=== PATIENT | male | born 1955 | race Caucasian/White ===

== ENCOUNTER 2016-10-22 09:12 | Emergency (ER) | payer OTHER ==
[~2016-10-22] VITALS: Ht 185.4 cm; Wt 109.6 kg
[~2016-10-22 09:12] MED LIST: BACT800T5 PO; HYDR-3580 PO; METO50TA PO; NAPR500 PO; PROS5TAB2 PO; TERA5CAP3 PO; VASO10TA8 PO
[2016-10-22 09:21] VITALS: BP 134/87; PULSE 76; RESP 16; TEMP 98.7; O2SAT 97
--- NOTE | 2016-10-22 09:39 | PD ---
HPI Chief Complaint: GI Complaint Time Seen by Provider: 09:25 Travel History International Travel<30 days: No Contact w/Intl Traveler<30days: No Traveled to known affect area: No History of Present Illness HPI This is a 61-year-old male who presents to the emergency department with diarrhea that's been going on for 2-3 weeks, constant, loose and watery. He has spoken to his primary care physician regarding this and his primary care doctor started him on Bactrim and then a course of Flagyl along with Lomotil. He says over the past 4 days he's developed black stools which is concerned him. He also reports that he's been feeling lightheaded and dizzy. Yesterday he had some intermittent right upper quadrant abdominal pain which has since resolved. He's not had any vomiting. He is not on any NSAIDs and denies alcohol use. He did have a colonoscopy a year and a half ago which was normal. He has an appointment with a technology lab teacher this Monday, but he was concerned about the dark stools so he came to the emergency department to be evaluated. PFSH Past Medical History Arthritis: Yes (RT LEG AND BILATERAL SHOULDERS) Blood Disorders: No Anxiety: No Depression: No Heart Rhythm Problems: No Cancer: No Cardiac Catheterization: Yes (02/20) Cardiovascular Problems: Yes (htn on meds) High Cholesterol: Yes Chest Pain: No Congestive Heart Failure: No Coronary Artery Disease: Yes Diabetes: No Diminished Hearing: No Endocrine: No Gastrointestinal Disorders: Yes (HX OF A GI BLEED (DENIES) HX OF DIVERTICULITIS ) GERD: No Genitourinary: Yes (? PROSTATE) Hepatitis: Yes (HEP C) Hiatal Hernia: No Heparin Induced Thrombocytopen: No Hypertension: Yes Immune Disorder: No Implanted Vascular Access Dvce: Yes Musculoskeletal: Yes (RIGHT FOOT PAIN) Neurologic: Yes (LEFT LEG NUMBNESS, NEUROPATHY) Psychiatric: Yes (SOME ANXIETY AND DEPRESSION) Reproductive: No Respiratory: Yes Immunizations Current: Yes Myocardial Infarction: No Sickle Cell Disease: Yes Sleep Apnea: Yes Thyroid Disease: No Ulcer: No Tetanus Vaccination: Unknown Past Surgical History Abdominal Surgery: No AICD: No Appendectomy: No Arteriovenous Shunt: No Body Medical Devices: SCREWS IN RT ANKLE Cardiac Surgery: No Cholecystectomy: No Ear Surgery: No Endocrine Surgery: Yes Eye Surgery: No Genitourinary Surgery: No Gynecologic Surgery: No Insulin Pump: No Joint Replacement: No Neurologic Surgery: No Oral Surgery: Yes (tonsillectomy ) Pacemaker: No Thoracic Surgery: No Tonsillectomy: Yes Social History Alcohol Use: Yes (2-4 beers/weekly) Tobacco Use: Yes (1/2 ppd) Substance Use: No Allergies-Medications (Allergen,Severity, Reaction): Coded Allergies: No Known Allergies (Verified , 10/22/16) Reported Meds & Prescriptions Reported Meds & Active Scripts Active Reported Xanax (Alprazolam) 0.25 Mg Tab 0.25 Mg PO BID PRN Temazepam 30 Mg Cap 30 Mg PO HS PRN Terazosin (Terazosin HCl) 5 Mg Cap 5 Mg PO HS Metoprolol Tartrate 75 Mg Tab 75 Mg PO BID Hydrocodone-Acetaminophen 10-325 mg Tab 1 Tab PO Q8H PRN Finasteride 5 Mg Tab 5 Mg PO DAILY Do not crush. Vasotec (Enalapril Maleate) 20 Mg Tab 20 Mg PO BID Review of Systems Except as stated in HPI: all other systems reviewed are Neg Physical Exam Narrative GENERAL:Well appearing, no acute distress SKIN: Warm and dry. HEAD: Atraumatic. Normocephalic. EYES: Pupils equal and round. No injection or drainage. ENT: Moist mucous membranes NECK: Trachea midline. CARDIOVASCULAR: Regular rate and rhythm. No murmur appreciated. RESPIRATORY: Clear to auscultation. Breath sounds equal bilaterally. GASTROINTESTINAL: Abdomen soft, non-tender, nondistended. MUSCULOSKELETAL: No obvious deformities. NEUROLOGICAL: Awake and alert. No obvious cranial nerve deficits. Moving all extremities. PSYCHIATRIC: Appropriate mood and affect; insight and judgment normal. Data Data Last Documented VS Vital Signs Date Time Temp Pulse Resp B/P Pulse Ox O2 Delivery O2 Flow Rate FiO2 10/22/16 09:46 16 97 Room Air 10/22/16 09:21 98.7 76 134/87 Orders Complete Blood Count With Diff (10/22/16 09:36) Comprehensive Metabolic Panel (10/22/16 09:36) Ecg Monitoring (10/22/16 09:36) Iv Access Insert/Monitor (10/22/16 09:36) Oximetry (10/22/16 09:36) Sodium Chloride 0.9% Flush (Ns Flush) (10/22/16 09:45) Labs Laboratory Tests Test 10/22/16 09:30 White Blood Count 7.2 TH/MM3 Red Blood Count 5.55 MIL/MM3 Hemoglobin 16.3 GM/DL Hematocrit 48.8 % Mean Corpuscular Volume 87.8 FL Mean Corpuscular Hemoglobin 29.4 PG Mean Corpuscular Hemoglobin 33.4 % Concent Red Cell Distribution Width 12.4 % Platelet Count 154 TH/MM3 Mean Platelet Volume 9.7 FL Neutrophils (%) (Auto) 77.2 % Lymphocytes (%) (Auto) 14.3 % Monocytes (%) (Auto) 6.1 % Eosinophils (%) (Auto) 1.8 % Basophils (%) (Auto) 0.6 % Neutrophils # (Auto) 5.7 TH/MM3 Lymphocytes # (Auto) 1.0 TH/MM3 Monocytes # (Auto) 0.4 TH/MM3 Eosinophils # (Auto) 0.1 TH/MM3 Basophils # (Auto) 0.0 TH/MM3 CBC Comment DIFF FINAL Differential Comment Sodium Level 143 MEQ/L Potassium Level 3.9 MEQ/L Chloride Level 106 MEQ/L Carbon Dioxide Level 28.8 MEQ/L Anion Gap 8 MEQ/L Blood Urea Nitrogen 11 MG/DL Creatinine 0.81 MG/DL Estimat Glomerular Filtration 97 ML/MIN Rate Random Glucose 103 MG/DL Calcium Level 8.9 MG/DL Total Bilirubin 0.5 MG/DL Aspartate Amino Transf 22 U/L (AST/SGOT) Alanine Aminotransferase 45 U/L (ALT/SGPT) Alkaline Phosphatase 54 U/L Total Protein 7.7 GM/DL Albumin 3.8 GM/DL MDM Medical Decision Making Medical Screen Exam Complete: Yes Emergency Medical Condition: Yes Interpretation(s) No leukocytosis No anemia Electrolytes within normal limits Differential Diagnosis Upper GI bleed, lower GI bleed, diarrhea, electrolyte abnormality, anemia Narrative Course This is a 61-year-old male who presents to the emergency department concerned about dark stools in the setting of recent diarrhea. He was placed on a monitor and an IV was established. Vital signs are reassuring. Labs are obtained which demonstrated normal hemoglobin. Hemoccult was negative. I don' t suspect an acute life-threatening GI bleed at this time and I think he's safe to follow-up with his subspecialist on Monday. [facility] Point of Care Internal Pos. & Neg. Controls: Passed Fecal Specimen Occult Blood: Negative Diagnosis Primary Impression: Dark stools Patient Instructions: General Instructions Additional Instructions: If you develop severe or worsening abdominal pain, fever>100.4, persistent vomiting or inability to eat or drink return to the emergency department immediately. Follow up with your technology lab teacher as scheduled. Med/Other Pt SpecificInfo: No Change to Meds Disposition: 01 DISCHARGE HOME Condition: Stable Alanna Griffiths MD Oct 22, 2016 09:39
[2016-10-22] MEDS ORDERED: ENAL20TA81 PO (09:44)
[2016-10-22] MEDS ORDERED: TEMA30CA PO (09:44)
[2016-10-22] MEDS ORDERED: TERA5CAP3 PO (09:44)
[2016-10-22] MEDS ORDERED: METO-426 PO (09:44)
[2016-10-22] MEDS ORDERED: FINA5TAB2 PO (09:44)
[2016-10-22] MEDS ORDERED: HYDR-3583 PO (09:44)
[2016-10-22] MEDS ORDERED: ALPR.25 PO (09:45)
[2016-10-22] MEDS ORDERED: SODIUM CHLORIDE 0.9% FLUSH 5 ML FLUSH IVF PRN (09:45)
[2016-10-22 09:46] VITALS: RESP 16; O2SAT 97
[2016-10-22 09:46] LABS: AUTOMATED NEUTROPHIL # 5.7 TH/MM3 (1.8-7.7); BASOPHIL % 0.6 % (0.0-2.0); EOSINOPHIL # 0.1 TH/MM3 (0-0.4); EOSINOPHIL % 1.8 % (0.0-4.0); HEMATOCRIT 48.8 % (39.0-51.0); HEMO FLAGS DIFF FINAL; LYMPH % 14.3 % (9.0-44.0); MEAN CELL VOLUME 87.8 FL (80.0-100.0); MEAN CORPUSCULAR HEMOGLOBIN 29.4 PG (27.0-34.0); MEAN CORPUSCULAR HGB CONC 33.4 % (32.0-36.0); MONO % 6.1 % (0.0-8.0); NEUT % 77.2 % (16.0-70.0); PLATELET COUNT 154 TH/MM3 (150-450); RED BLOOD COUNT 5.55 MIL/MM3 (4.50-5.90); RED CELL DISTRIBUTION WIDTH 12.4 % (11.6-17.2); WHITE BLOOD COUNT 7.2 TH/MM3 (4.0-11.0)
[2016-10-22 09:59] LABS: ANION GAP 8 MEQ/L (5-15); BICARBONATE 28.8 MEQ/L (21.0-32.0); CHLORIDE 106 MEQ/L (98-107); POTASSIUM 3.9 MEQ/L (3.5-5.1); SODIUM (NA) 143 MEQ/L (136-145)
[2016-10-22 10:02] LABS: ALT (GPT) 45 U/L (12-78); AST (GOT) 22 U/L (15-37); GLOMERULAR FILTRATION RATE 97 ML/MIN (>89)
[2016-10-22 10:03] LABS: TOTAL BILIRUBIN ADULT 0.5 MG/DL (0.2-1.0)
[2016-10-22 10:05] LABS: ALKALINE PHOSPHATASE 54 U/L (45-117); BLOOD UREA NITROGEN 11 MG/DL (7-18)
[2016-10-22 10:23] VITALS: BP 135/83
== END 2016-10-22 10:28 | disposition home or self-care (01) ==
LOC: PHED 09:12
DX: R19.5 Other fecal abnormalities (principal); R19.7 Diarrhea, unspecified; R42 Dizziness and giddiness; I10 Essential (primary) hypertension; E78.00 Pure hypercholesterolemia, unspecified; G47.30 Sleep apnea, unspecified; Z86.79 Personal history of other diseases of the circulatory system; Z87.39 Personal history of other diseases of the musculoskeletal system and connective tissue; Z87.19 Personal history of other diseases of the digestive system; Z86.19 Personal history of other infectious and parasitic diseases; Z86.69 Personal history of other diseases of the nervous system and sense organs; Z86.59 Personal history of other mental and behavioral disorders; Z87.09 Personal history of other diseases of the respiratory system; Z86.2 Personal history of diseases of the blood and blood-forming organs and certain disorders involving the immune mechanism
CPT/HCPCS: 80053; 85025; 99284

== ENCOUNTER 2016-11-30 09:57 | Emergency (ER) | payer OTHER, MEDICAID ==
[~2016-11-30] VITALS: Ht 185.4 cm; Wt 109.0 kg
[2016-11-30] VITALS (9 sets, daily range): BP systolic 98–134; BP diastolic 65–75; PULSE 62–80; RESP 16–18; TEMP 98.7; O2SAT 97–98
[~2016-11-30 09:57] MED LIST changes: +ALPR.25 PO; -BACT800T5 PO; +ENAL20TA81 PO; +FINA5TAB2 PO; -HYDR-3580 PO; +HYDR-3583 PO; +METO-426 PO; -METO50TA PO; -NAPR500 PO; -PROS5TAB2 PO; +TEMA30CA PO; -VASO10TA8 PO
[2016-11-30] MEDS ORDERED: GABA300C5 PO (10:24)
[2016-11-30] MEDS ORDERED: SODIUM CHLOR 0.9% 1000 ML INJ 1,000 ML IV SCH (10:35)
[2016-11-30] MEDS ORDERED: SODIUM CHLORIDE 0.9% FLUSH 5 ML FLUSH IVF PRN (10:45)
[2016-11-30] MEDS ORDERED: ONDANSETRON HCL 4 MG/2 ML VIAL IVP ONE (10:45)
[2016-11-30 10:48] LABS: AUTOMATED NEUTROPHIL # 4.6 TH/MM3 (1.8-7.7); BASOPHIL % 0.5 % (0.0-2.0); EOSINOPHIL # 0.2 TH/MM3 (0-0.4); EOSINOPHIL % 2.8 % (0.0-4.0); HEMATOCRIT 46.4 % (39.0-51.0); HEMO FLAGS DIFF FINAL; LYMPH % 23.5 % (9.0-44.0); LYMPHOCYTE # 1.6 TH/MM3 (1.0-4.8); MEAN CELL VOLUME 88.4 FL (80.0-100.0); MEAN CORPUSCULAR HEMOGLOBIN 29.1 PG (27.0-34.0); MEAN CORPUSCULAR HGB CONC 32.9 % (32.0-36.0); MONO % 6.7 % (0.0-8.0); NEUT % 66.5 % (16.0-70.0); PLATELET COUNT 171 TH/MM3 (150-450); RED BLOOD COUNT 5.26 MIL/MM3 (4.50-5.90); RED CELL DISTRIBUTION WIDTH 12.3 % (11.6-17.2); WHITE BLOOD COUNT 6.9 TH/MM3 (4.0-11.0)
--- NOTE | 2016-11-30 10:52 | PD ---
HPI Chief Complaint: GI Complaint Time Seen by Provider: 10:23 Travel History International Travel<30 days: No Contact w/Intl Traveler<30days: No Traveled to known affect area: No History of Present Illness HPI Patient is 61-year-old male who presents to emergency room with complaints of abdominal pain and diarrhea. Patient reports that he has had diarrhea since September 24, 2016. Patient reports that he has multiple absence of diarrhea per day. Patient reports that on September 26, he talked to his doctor, Dr. Babcock about this and was started on 2 antibiotics and was put on Imodium, reports that this did not help with his symptoms although he completed a full course of antibiotics. Reports that he ended up following up with his GI doctor and saw Dr. Paz sometime in late October and was given "a bunch of samples" and was sent home. Reports that he had an ultrasound of his liver and the ultrasound showed an enlarged liver - reports that he did have history of hepatitis but "thats gone bc it has been treated." Patient reports that he was so symptomatic and was having multiple episodes of diarrhea per day, reports that he had a colonoscopy as well as an endoscopy by Dr Smallwood on November 23, 2016 which he was told was "normal." Patient reports that he is continuing to have multiple episodes of diarrhea each day. Patient reports that he is able to eat and drink, reports that overall he feels dehydrated as she is afraid to drink as if he has too much fluids, he will have diarrhea. Reports that his GI doctor did request stool samples, patient did send one sample out via [employer] a couple days ago - the samples are still pending. Patient reports that he has a bowel movement this morning and "made a mess of myself," reports that he went to shower but felt light headed and dizzy in the shower. Reports that he felt as if he was going to pass out but didn't. Reports that he was able to make it to his bed and lie down. Patient concerned about this diarrhea which has been ongoing since September 24, 2016. Patient denies any sick contacts, denies any recent travels or trips. Denies fevers or chills, denies chest pain or shortness of breath at this time. PFSH Past Medical History Arthritis: Yes (RT LEG AND BILATERAL SHOULDERS) Blood Disorders: No Anxiety: No Depression: No Heart Rhythm Problems: No Cancer: No Cardiac Catheterization: Yes (02/20) Cardiovascular Problems: Yes (HTN) High Cholesterol: Yes Chest Pain: No Congestive Heart Failure: No Coronary Artery Disease: Yes Diabetes: No Diminished Hearing: No Endocrine: No Gastrointestinal Disorders: Yes (HX OF A GI BLEED (DENIES) HX OF DIVERTICULITIS ) GERD: No Genitourinary: Yes (? PROSTATE) Hepatitis: Yes (HEP C) Hiatal Hernia: No Heparin Induced Thrombocytopen: No Hypertension: Yes Immune Disorder: No Implanted Vascular Access Dvce: Yes Musculoskeletal: Yes (RIGHT FOOT PAIN) Neurologic: Yes (LEFT LEG NUMBNESS, NEUROPATHY) Psychiatric: Yes (SOME ANXIETY AND DEPRESSION) Reproductive: No Respiratory: Yes Immunizations Current: Yes Myocardial Infarction: No Sickle Cell Disease: Yes Sleep Apnea: Yes Thyroid Disease: No Ulcer: No Tetanus Vaccination: Unknown Past Surgical History Abdominal Surgery: No AICD: No Appendectomy: No Arteriovenous Shunt: No Body Medical Devices: SCREWS IN RT ANKLE Cardiac Surgery: No Cholecystectomy: No Ear Surgery: No Endocrine Surgery: Yes Eye Surgery: No Genitourinary Surgery: No Gynecologic Surgery: No Insulin Pump: No Joint Replacement: No Neurologic Surgery: No Oral Surgery: Yes (tonsillectomy ) Pacemaker: No Thoracic Surgery: No Tonsillectomy: Yes Social History Alcohol Use: No Tobacco Use: Yes (10/18 ppd) Substance Use: No Allergies-Medications (Allergen,Severity, Reaction): Coded Allergies: No Known Allergies (Verified , 11/30/16) Reported Meds & Prescriptions Reported Meds & Active Scripts Active Flagyl (Metronidazole) 500 Mg Tab 500 Mg PO TID 7 Days Cipro (Ciprofloxacin HCl) 500 Mg Tab 500 Mg PO BID 7 Days Reported Gabapentin 300 Mg Cap 300 Mg PO HS Xanax (Alprazolam) 0.25 Mg Tab 0.25 Mg PO BID PRN Temazepam 30 Mg Cap 30 Mg PO HS PRN Terazosin (Terazosin HCl) 5 Mg Cap 5 Mg PO HS Metoprolol Tartrate 75 Mg Tab 75 Mg PO BID Hydrocodone-Acetaminophen 10-325 mg Tab 1 Tab PO Q8H PRN Finasteride 5 Mg Tab 5 Mg PO DAILY Do not crush. Vasotec (Enalapril Maleate) 20 Mg Tab 20 Mg PO BID Review of Systems General / Constitutional: No: Fever Eyes: No: Visual changes HENT: No: Headaches Cardiovascular: No: Chest Pain or Discomfort Respiratory: No: Shortness of Breath Gastrointestinal: Positive: Nausea, Vomiting, Diarrhea, No: Abdominal Pain, Constipation Genitourinary: No: Dysuria Musculoskeletal: No: Pain Skin: No Rash Neurologic: No: Weakness Psychiatric: No: Depression Endocrine: No: Polydipsia Hematologic/Lymphatic: No: Easy Bruising Physical Exam Narrative GENERAL: NAD, Nontoxic SKIN: Warm and dry. HEAD: Atraumatic. Normocephalic. EYES: Pupils equal and round. No scleral icterus. No injection or drainage. ENT: No nasal bleeding or discharge. Mucous membranes dry and tachy. NECK: Trachea midline. No JVD. CARDIOVASCULAR: Regular rate and rhythm. No murmur appreciated. RESPIRATORY: No accessory muscle use. Clear to auscultation. Breath sounds equal bilaterally. GASTROINTESTINAL: Abdomen soft, non-tender, nondistended. MUSCULOSKELETAL: No obvious deformities. No clubbing. No cyanosis. No edema. NEUROLOGICAL: Awake and alert. No obvious cranial nerve deficits. Motor grossly within normal limits. Normal speech. PSYCHIATRIC: Appropriate mood and affect; insight and judgment normal. Data Data Last Documented VS Vital Signs Date Time Temp Pulse Resp B/P Pulse Ox O2 Delivery O2 Flow Rate FiO2 11/30/16 11:09 66 18 99/73 11/30/16 10:02 98.7 97 Orders Orthostatic Vital Signs (11/30/16 10:33) C Diff Toxin Pcr (11/30/16 10:33) Giardia Antigen (Stool) (11/30/16 10:33) Stool Ova And Parasite Screen (11/30/16 10:33) Stool Wbc (Leukocytes) (11/30/16 10:33) Enteric Path (Stool) (11/30/16 10:33) Complete Blood Count With Diff (11/30/16 10:35) Comprehensive Metabolic Panel (11/30/16 10:35) Lipase (11/30/16 10:35) Prothrombin Time / Inr (Pt) (11/30/16 10:35) Act Partial Throm Time (Ptt) (11/30/16 10:35) Urinalysis - C+S If Indicated (11/30/16 10:35) Ct Abd/Pel W Iv Contrast(Rout) (11/30/16 10:35) Iv Access Insert/Monitor (11/30/16 10:35) Ondansetron Inj (Zofran Inj) (11/30/16 10:45) Sodium Chlor 0.9% 1000 Ml Inj (Ns 1000 M (11/30/16 10:35) Sodium Chloride 0.9% Flush (Ns Flush) (11/30/16 10:45) Electrocardiogram (11/30/16 10:35) Iohexol 350 Inj (Omnipaque 350 Inj) (11/30/16 12:11) Ciprofloxacin 400 Mg Premix (Cipro 400 M (11/30/16 12:45) Metronidazole 500 Mg Inj (Flagyl 500 Mg (11/30/16 12:45) Labs Laboratory Tests Test 11/30/16 10:40 White Blood Count 6.9 TH/MM3 Red Blood Count 5.26 MIL/MM3 Hemoglobin 15.3 GM/DL Hematocrit 46.4 % Mean Corpuscular Volume 88.4 FL Mean Corpuscular Hemoglobin 29.1 PG Mean Corpuscular Hemoglobin 32.9 % Concent Red Cell Distribution Width 12.3 % Platelet Count 171 TH/MM3 Mean Platelet Volume 9.1 FL Neutrophils (%) (Auto) 66.5 % Lymphocytes (%) (Auto) 23.5 % Monocytes (%) (Auto) 6.7 % Eosinophils (%) (Auto) 2.8 % Basophils (%) (Auto) 0.5 % Neutrophils # (Auto) 4.6 TH/MM3 Lymphocytes # (Auto) 1.6 TH/MM3 Monocytes # (Auto) 0.5 TH/MM3 Eosinophils # (Auto) 0.2 TH/MM3 Basophils # (Auto) 0.0 TH/MM3 CBC Comment DIFF FINAL Differential Comment Prothrombin Time 11.5 SEC Prothromb Time International 1.0 RATIO Ratio Activated Partial 32.8 SEC Thromboplast Time Sodium Level 143 MEQ/L Potassium Level 3.9 MEQ/L Chloride Level 109 MEQ/L Carbon Dioxide Level 26.4 MEQ/L Anion Gap 8 MEQ/L Blood Urea Nitrogen 7 MG/DL Creatinine 0.77 MG/DL Estimat Glomerular Filtration 103 ML/MIN Rate Random Glucose 111 MG/DL Calcium Level 8.6 MG/DL Total Bilirubin 0.4 MG/DL Aspartate Amino Transf 16 U/L (AST/SGOT) Alanine Aminotransferase 23 U/L (ALT/SGPT) Alkaline Phosphatase 55 U/L Total Protein 6.3 GM/DL Albumin 3.0 GM/DL Lipase 108 U/L MDM Medical Decision Making Medical Screen Exam Complete: Yes Emergency Medical Condition: Yes Interpretation(s) EKG at 1043: NSR at 61bpm, qt/qtc: 424/425, rbbb, no acute st or t wave changes Vital Signs Date Time Temp Pulse Resp B/P Pulse Ox O2 Delivery O2 Flow Rate FiO2 11/30/16 10:19 16 11/30/16 10:02 98.7 70 16 102/75 97 Differential Diagnosis c.diff colitis, diverticulitis, ibs, giarda diarrhea, dehydration, vasovagal syncope Narrative Course Patient is a 61-year-old male who presents most room with complaints of diarrhea since September 24, 2016. Patient reports that she has had multiple episodes of diarrhea every since day. Patient reports that he has had a full workup of his symptoms with no relief of symptoms. Reports that stool cultures are pending at this time as he did sent them into [employer], reports that these cultures are pending. Reports that despite being on antibiotics and and having GI evaluate him, he is still having diarrhea. Reports that he feels as if he is dehydrated as he is afraid to drink because he doesn't want to have diarrhea. Patient reports near syncopal episode today while in shower. Patient reports "I had enough of this diarrhea and want to get to the bottom of things." patient with mucous membranes which are dry. plan to order iv, will give iv fluids and antiemetics. stool samples will be obtained. ct of abdomen and pelvis ordered for further workup of his diarrhea with mild lower abdominal pain. cbc: wnl bmp: chloride 109, glucose 111 c.diff and stool cultures are pending ct abd and pelvis: Last Impressions Abdomen/Pelvis CT 11/30/16 1035 Signed Impressions: Service Date/Time: Wednesday, November 30, 2016 12:01 - CONCLUSION: 1. Mild wall thickening of the sigmoid colon with fluid filled large bowel loops. No obstruction or inflammatory change. This could be related to colitis. 2. Small right renal cyst. Luis Fischer MD Copies of studies were given to patient. Patient with most likely colitis, will treat with antibiotics. Patient is able to tolerate fluids at this time, increased fluid intake. I discussed with patient need to follow-up with all cultures from today. Patient will follow up with his records specialist, signs and symptoms of when to return to emergency room was reviewed with patient in detail. Diagnosis Primary Impression: Colitis Patient Instructions: General Instructions Additional Instructions: Please give patient a copy of his lab work and study at discharge Please follow-up with your primary care doctor as well as your records specialist as soon as possible Please increase your fluid intake Please follow up with all cultures from today Return to emergency room if symptoms return or persist Please bring your discharge paperwork as well as your lab and studies to doctor' s appointment for follow-up Med/Other Pt SpecificInfo: Prescription(s) given Scripts Metronidazole (Flagyl)500 Mg [id number] Mg PO TID 7 Days Ref 0 Prov:Kaela Thomas DO 11/30/16 Ciprofloxacin (Cipro)500 Mg [id number] Mg PO BID 7 Days Ref 0 Prov:Kaela Thomas DO 11/30/16 Disposition: 01 DISCHARGE HOME Condition: Stable Kaela Thomas DO Nov 30, 2016 10:52
[2016-11-30 10:59] LABS: CHLORIDE 109 MEQ/L (98-107); POTASSIUM 3.9 MEQ/L (3.5-5.1); SODIUM (NA) 143 MEQ/L (136-145)
[2016-11-30 11:03] LABS: ANION GAP 8 MEQ/L (5-15); APTT (PATIENT) 32.8 SEC (24.3-30.1); BICARBONATE 26.4 MEQ/L (21.0-32.0); BLOOD UREA NITROGEN 7 MG/DL (7-18); PROTHROMBIN TIME - PATIENT 11.5 SEC (9.8-11.6)
[2016-11-30 11:06] LABS: ALT (GPT) 23 U/L (12-78); AST (GOT) 16 U/L (15-37); GLOMERULAR FILTRATION RATE 103 ML/MIN (>89)
[2016-11-30 11:07] LABS: TOTAL BILIRUBIN ADULT 0.4 MG/DL (0.2-1.0)
[2016-11-30 11:09] LABS: ALKALINE PHOSPHATASE 55 U/L (45-117)
[2016-11-30] MEDS ORDERED: IOHEXOL 350 MG/ML 10 ML VIAL (for RAD DIAG) IV ONE (12:11)
--- NOTE | 2016-11-30 12:20 | RADHPO ---
EXAM DATE/TIME: 11/30/2016 12:01 [facility] COMPARISON: CT ABDOMEN & PELVIS W CONTRAST, June 02, 2014, 21:41. INDICATIONS : Acute diarrhea for ten days. IV CONTRAST: 95 cc Omnipaque 350 (iohexol) IV ORAL CONTRAST: No oral contrast ingested. RADIATION DOSE: 21.14 CTDIvol (mGy) MEDICAL HISTORY : Hypertension. SURGICAL HISTORY : None. ENCOUNTER: Initial ACUITY: 2 weeks PAIN SCALE: 0/10 LOCATION: abdomen/ pelvis TECHNIQUE: Volumetric scanning of the abdomen and pelvis was performed. Using automated exposure control and ad justment of the mA and/or kV according to patient size, radiation dose was kept as low as reasonably achievable to obtain optimal diagnostic quality images. FINDINGS: LOWER LUNGS: The visualized lower lungs are clear. LIVER: Homogeneous density without lesion. There is no dilation of the biliary tree. No calcified gallston es. SPLEEN: Normal size without lesion. PANCREAS: Within normal limits. KIDNEYS: Normal in size and shape. There is no mass, stone or hydronephrosis. Stable lower pole right renal l ow density. ADRENAL GLANDS: Within normal limits. VASCULAR: There is no aortic aneurysm. Diffuse atherosclerotic changes. BOWEL/MESENTERY: Mild wall thickening of the sigmoid colon. Fluid-filled large bowel without obstruction. There is no free intraperitoneal air or fluid. ABDOMINAL WALL: Within normal limits. RETROPERITONEUM: There is no lymphadenopathy. BLADDER: No wall thickening or mass. REPRODUCTIVE: Within normal limits. INGUINAL: There is no lymphadenopathy or hernia. MUSCULOSKELETAL: Within normal limits for patient age. CONCLUSION: 1. Mild wall thickening of the sigmoid colon with fluid filled large bowel loops. No obstruction or i nflammatory change. This could be related to colitis. 2. Small right renal cyst. Luis Fischer MD on November 30, 2016 at 12:15 Board Certified Radiologist. This report was verified electronically.
[2016-11-30] MEDS ORDERED: METR-1 PO (12:34)
[2016-11-30] MEDS ORDERED: CIPR-9 PO (12:34)
[2016-11-30] MEDS ORDERED: CIPROFLOXACIN 400 MG PREMIX 200 ML IV ONE (12:45)
[2016-11-30] MEDS ORDERED: metroNIDAZOLE 500 MG INJ 100 ML IV ONE (12:45)
[2016-11-30 12:55] LABS: BLOOD, URINE NEG (NEG); GLUCOSE,URINE NEG (NEG); KETONE, URINE NEG (NEG); NITRITE,URINE NEG (NEG)
[2016-11-30 13:10] LABS: METHOD OF COLLECTION CLEAN CATCH; URINE COLOR T (YELLW/STRAW)
[2016-11-30 13:11] LABS: COMMENT (UR) CULT NOT INDICATED; CULTURE IF INDICATED CULT NOT INDICATED; SQUAMOUS EPITHELIAL CELL URINE 0-5 /hpf (0-5)
[2016-11-30 19:27] LABS: C. DIFF EPI 027 PRESUMPTIVE NEGATIVE (NEGATIVE); C. DIFF TOXIN PCR NEGATIVE (NEGATIVE)
--- NOTE | 2016-12-01 11:35 | EKG ---
Date Performed: 11/30/2016 Time Performed: 10:43:32 PTAGE: 61 years EKG: Sinus rhythm Right bundle branch block Abnormal ECG NO PREVIOUS TRACING DOCTOR: Basil Leon Interpretating Date/Time 12/01/2016 11:33:47
== END 2016-11-30 16:27 | disposition home or self-care (01) ==
LOC: PHED 09:57
DX: K52.9 Noninfective gastroenteritis and colitis, unspecified (principal); I45.10 Unspecified right bundle-branch block; I10 Essential (primary) hypertension; I25.10 Atherosclerotic heart disease of native coronary artery without angina pectoris; R42 Dizziness and giddiness; B19.20 Unspecified viral hepatitis C without hepatic coma; F17.200 Nicotine dependence, unspecified, uncomplicated
CPT/HCPCS: 74177; 80053; 81001; 83690; 85025; 85610; 85730; 87205; 87493; 93005; 96361; 96365; 96367; 96375; 99284; J0744; J2405; J7030; Q9967; 87328; 87329; 87506

== ENCOUNTER 2018-03-25 15:42 | Emergency (ER) | payer OTHER, MEDICAID ==
[~2018-03-25] VITALS: Ht 185.4 cm; Wt 107.0 kg
[~2018-03-25 15:42] MED LIST changes: +CIPR-9 PO; +GABA300C5 PO; +METR-1 PO
[2018-03-25 15:45] VITALS: BP 158/83; PULSE 75; RESP 18; TEMP 99; O2SAT 96
[2018-03-25] MEDS ORDERED: OMEP40CA2 PO (16:05)
[2018-03-25] MEDS ORDERED: CARA1SUS3 PO (16:05)
[2018-03-25] MEDS ORDERED: RANI150T PO (16:05)
--- NOTE | 2018-03-25 16:05 | PD ---
HPI Chief Complaint: GI Complaint Time Seen by Provider: 15:54 Travel History International Travel<30 days: No Contact w/Intl Traveler<30days: No Traveled to known affect area: No History of Present Illness HPI This patient has history of alcoholic liver cirrhosis. He had recent ultrasound of his abdomen and colonoscopy done. He quit drinking a couple months ago. He came to the ER today because he has been having some nausea and just felt bloated. No chest pain or shortness of breath or syncope or headache. He denies rectal bleeding. Symptom severity is mild to moderate. No alleviating factors. No exacerbating factors. Duration 3 days PFSH Past Medical History Arthritis: Yes (RT LEG AND BILATERAL SHOULDERS) Blood Disorders: No Anxiety: No Depression: No Heart Rhythm Problems: No Cancer: No Cardiac Catheterization: Yes (02/20) Cardiovascular Problems: Yes (HTN) High Cholesterol: Yes Chest Pain: No Congestive Heart Failure: No Cirrhosis: Yes Coronary Artery Disease: Yes Diabetes: No Diminished Hearing: No Endocrine: No Gastrointestinal Disorders: Yes (HX OF A GI BLEED (DENIES) HX OF DIVERTICULITIS ) GERD: No Genitourinary: Yes (? PROSTATE) Hepatitis: Yes (HEP C) Hiatal Hernia: No Heparin Induced Thrombocytopen: No Hypertension: Yes Immune Disorder: No Implanted Vascular Access Dvce: Yes Musculoskeletal: Yes (RIGHT FOOT PAIN) Neurologic: Yes (LEFT LEG NUMBNESS, NEUROPATHY) Psychiatric: Yes (SOME ANXIETY AND DEPRESSION) Reproductive: No Respiratory: Yes Immunizations Current: Yes Myocardial Infarction: No Sickle Cell Disease: Yes Sleep Apnea: Yes Thyroid Disease: No Ulcer: No Tetanus Vaccination: Unknown Past Surgical History Abdominal Surgery: No AICD: No Appendectomy: No Arteriovenous Shunt: No Body Medical Devices: SCREWS IN RT ANKLE Cardiac Surgery: No Cholecystectomy: No Ear Surgery: No Endocrine Surgery: Yes Eye Surgery: No Genitourinary Surgery: No Gynecologic Surgery: No Insulin Pump: No Joint Replacement: No Neurologic Surgery: No Oral Surgery: Yes (tonsillectomy ) Pacemaker: No Thoracic Surgery: No Tonsillectomy: Yes Social History Alcohol Use: No Tobacco Use: Yes (10/18 ppd) Substance Use: No Allergies-Medications (Allergen,Severity, Reaction): Coded Allergies: No Known Allergies (Verified Adverse Reaction, Unknown, 03/25/18) Reported Meds & Prescriptions Reported Meds & Active Scripts Active Reported Ranitidine (Ranitidine HCl) 150 Mg Tab 150 Mg PO BID Omeprazole 40 Mg Cap 40 Mg PO EVERY OTHER DAY Carafate Liq (Sucralfate) 1 Gm/10 Ml Susp 1 Gm PO BID on empty stomach Gabapentin 300 Mg Cap 300 Mg PO HS Xanax (Alprazolam) 0.25 Mg Tab 0.25 Mg PO BID PRN Temazepam 30 Mg Cap 30 Mg PO HS PRN Terazosin (Terazosin HCl) 5 Mg Cap 5 Mg PO HS Metoprolol Tartrate 75 Mg Tab 75 Mg PO BID Finasteride 5 Mg Tab 5 Mg PO DAILY Do not crush. Vasotec (Enalapril Maleate) 20 Mg Tab 20 Mg PO BID Review of Systems General / Constitutional: No: Fever Eyes: No: Visual changes HENT: No: Headaches Cardiovascular: No: Chest Pain or Discomfort Respiratory: No: Shortness of Breath Gastrointestinal: Positive: Nausea, No: Abdominal Pain Genitourinary: No: Dysuria Musculoskeletal: No: Pain Skin: No Rash Neurologic: No: Weakness Psychiatric: No: Depression Endocrine: No: Polydipsia Hematologic/Lymphatic: No: Easy Bruising Physical Exam Narrative GENERAL: Well-nourished, well-developed patient in no apparent distress. SKIN: Focused skin assessment reveals no rash and nodules. Skin is Warm and dry. HEAD: Atraumatic. Normocephalic. EYES: Pupils equal and round. No scleral icterus. No injection or drainage. ENT: No nasal bleeding or discharge. Mucous membranes pink and moist. NECK: Trachea midline. No JVD. CARDIOVASCULAR: Regular rate and rhythm. No murmur appreciated. RESPIRATORY: No accessory muscle use. Clear to auscultation. Breath sounds equal bilaterally. GASTROINTESTINAL: Abdomen soft, obese, non-tender, nondistended. Hepatic and splenic margins not palpable. MUSCULOSKELETAL: No obvious deformities. No clubbing. No cyanosis. No edema. NEUROLOGICAL: Awake and alert. No obvious cranial nerve deficits. Motor grossly within normal limits. Normal speech. PSYCHIATRIC: Appropriate mood and affect; insight and judgment normal. Data Data Last Documented VS Vital Signs Date Time Temp Pulse Resp B/P (MAP) Pulse Ox O2 Delivery O2 Flow Rate FiO2 03/25/18 16:07 16 03/25/18 15:45 99.0 75 158/83 (108) 96 Orders Orders Ondansetron Odt (Zofran Odt) (03/25/18 16:15) Iv Access Insert/Monitor (03/25/18 16:01) Complete Blood Count With Diff (03/25/18 16:01) Comprehensive Metabolic Panel (03/25/18 16:01) Labs Laboratory Tests Test 03/25/18 16:17 White Blood Count 9.1 TH/MM3 Red Blood Count 5.14 MIL/MM3 Hemoglobin 15.4 GM/DL Hematocrit 44.5 % Mean Corpuscular Volume 86.6 FL Mean Corpuscular Hemoglobin 30.0 PG Mean Corpuscular Hemoglobin Concent 34.7 % Red Cell Distribution Width 12.9 % Platelet Count 149 TH/MM3 Mean Platelet Volume 10.0 FL Neutrophils (%) (Auto) 71.6 % Lymphocytes (%) (Auto) 19.1 % Monocytes (%) (Auto) 7.7 % Eosinophils (%) (Auto) 1.2 % Basophils (%) (Auto) 0.4 % Neutrophils # (Auto) 6.6 TH/MM3 Lymphocytes # (Auto) 1.7 TH/MM3 Monocytes # (Auto) 0.7 TH/MM3 Eosinophils # (Auto) 0.1 TH/MM3 Basophils # (Auto) 0.0 TH/MM3 CBC Comment DIFF FINAL Differential Comment Blood Urea Nitrogen 9 MG/DL Creatinine 0.70 MG/DL Random Glucose 92 MG/DL Total Protein 7.4 GM/DL Albumin 3.6 GM/DL Calcium Level 9.0 MG/DL Alkaline Phosphatase 66 U/L Aspartate Amino Transf (AST/SGOT) 17 U/L Alanine Aminotransferase (ALT/SGPT) 21 U/L Total Bilirubin 0.4 MG/DL Sodium Level 140 MEQ/L Potassium Level 3.5 MEQ/L Chloride Level 106 MEQ/L Carbon Dioxide Level 28.0 MEQ/L Estimat Glomerular Filtration Rate 114 ML/MIN [facility] Medical Decision Making Medical Screen Exam Complete: Yes Emergency Medical Condition: Yes Medical Record Reviewed: Yes Differential Diagnosis Exacerbation of cirrhosis, irritable bowel syndrome, ileus, colitis Narrative Course I have reviewed the patient's electronic medical record. Patient was here in [address] colitis on [address] scan IV placed and labs sent I gave him a dose of Zofran Abdomen is soft and benign and nontender CBC and CMP are normal Stable for outpatient primary care and GI follow-up Zofran prescribed Diagnosis Primary Impression: Nausea alone Additional Impression: Liver cirrhosis, alcoholic Qualified Codes: K70.30 - Alcoholic cirrhosis of liver without ascites Additional Instructions: The patient was advised to follow up with their physician and return if they worsen. Med/Other Pt SpecificInfo: Prescription(s) given Scripts Ondansetron (Zofran) 4 Mg Tab 4 MG PO Q6HR Y for NAUSEA OR VOMITING, #10 TAB 0 Refills Prov: Sam Ty MD 03/25/18 Disposition: 01 DISCHARGE HOME Condition: Stable Sam Ty MD Mar 25, 2018 16:05
[2018-03-25] MEDS ORDERED: ONDANSETRON ODT 4 MG TAB PO ONE (16:15)
[2018-03-25 16:31] LABS: AUTOMATED NEUTROPHIL # 6.6 TH/MM3 (1.8-7.7); BASOPHIL % 0.4 % (0.0-2.0); EOSINOPHIL # 0.1 TH/MM3 (0-0.4); EOSINOPHIL % 1.2 % (0.0-4.0); HEMATOCRIT 44.5 % (39.0-51.0); HEMOGLOBIN 15.4 GM/DL (13.0-17.0); LYMPH % 19.1 % (9.0-44.0); LYMPHOCYTE # 1.7 TH/MM3 (1.0-4.8); MEAN CELL VOLUME 86.6 FL (80.0-100.0); MEAN CORPUSCULAR HGB CONC 34.7 % (32.0-36.0); MONO % 7.7 % (0.0-8.0); MONOCYTE # 0.7 TH/MM3 (0-0.9); NEUT % 71.6 % (16.0-70.0); PLATELET COUNT 149 TH/MM3 (150-450); RED BLOOD COUNT 5.14 MIL/MM3 (4.50-5.90); RED CELL DISTRIBUTION WIDTH 12.9 % (11.6-17.2); WHITE BLOOD COUNT 9.1 TH/MM3 (4.0-11.0)
[2018-03-25 16:43] LABS: CHLORIDE 106 MEQ/L (98-107); SODIUM (NA) 140 MEQ/L (136-145)
[2018-03-25 16:47] LABS: ALBUMIN 3.6 GM/DL (3.4-5.0); BLOOD UREA NITROGEN 9 MG/DL (7-18); GLUCOSE,RANDOM 92 MG/DL (74-106)
[2018-03-25 16:50] LABS: ALT (GPT) 21 U/L (12-78); AST (GOT) 17 U/L (15-37); GLOMERULAR FILTRATION RATE 114 ML/MIN (>89)
[2018-03-25 16:51] LABS: TOTAL BILIRUBIN ADULT 0.4 MG/DL (0.2-1.0); TOTAL PROTEIN 7.4 GM/DL (6.4-8.2)
[2018-03-25 16:53] LABS: ALKALINE PHOSPHATASE 66 U/L (45-117)
[2018-03-25] MEDS ORDERED: ZOFR4TAB PO (17:06)
[2018-03-25 17:19] VITALS: BP 144/82
== END 2018-03-25 17:24 | disposition home or self-care (01) ==
LOC: PHED 15:42
DX: R11.0 Nausea (principal); K70.30 Alcoholic cirrhosis of liver without ascites; F17.200 Nicotine dependence, unspecified, uncomplicated; M19.90 Unspecified osteoarthritis, unspecified site; I10 Essential (primary) hypertension; E78.00 Pure hypercholesterolemia, unspecified; I25.10 Atherosclerotic heart disease of native coronary artery without angina pectoris; G62.9 Polyneuropathy, unspecified; F41.9 Anxiety disorder, unspecified; F32.9 Major depressive disorder, single episode, unspecified; D57.1 Sickle-cell disease without crisis; G47.30 Sleep apnea, unspecified; Z79.899 Other long term (current) drug therapy; Z86.19 Personal history of other infectious and parasitic diseases
CPT/HCPCS: 80053; 85025; 99283